=== PATIENT | male | born 1970 | race Hispanic/Latino ===

== ENCOUNTER 2016-11-24 18:03 | Inpatient (IN) | payer MEDICAID, OTHER ==
--- NOTE | 2016-11-24 18:14 | ED PDOC ---
Arrival/HPI - General Time Seen by Provider: 11/24/16 18:04 Historian: Patient - History of Present Illness Narrative History of Present Illness (Text): 11/24/16 18:04 Manolo Cisneros is a 46 year old male, whose past medical history includes depression, who presents to the emergency department transferred from [facility] for suicidal ideation. Patient was medically cleared and accepted prior to arrival. Patient denies any complaints at this time. Time/Duration: 24 hours Symptom Onset: Gradual Symptom Course: Unchanged Activities at Onset: Rest Context: Home Past Medical History - Provider Review Nursing Documentation Reviewed: Yes Family/Social History - Physician Review Nursing Documentation Reviewed: Yes Family/Social History: No Known Family HX Allergies/Home Meds Allergies/Adverse Reactions: Allergies No Known Allergies Allergy (Verified 11/24/16 18:14) Home Medications: Home Meds Medication Instructions Recorded Confirmed No Known Home Med 11/24/16 11/24/16 Review of Systems - Physician Review All systems were reviewed & negative as marked: Yes - Review of Systems Constitutional: absent: Fevers, Night Sweats Eyes: absent: Vision Changes ENT: absent: Hearing Changes Respiratory: absent: SOB, Cough Cardiovascular: absent: Chest Pain Gastrointestinal: absent: Abdominal Pain Genitourinary Male: absent: Dysuria, Frequency Musculoskeletal: absent: Arthralgias Skin: absent: Rash Neurological: absent: Headache Endocrine: absent: Diaphoresis Hemo/Lymphatic: absent: Adenopathy Psychiatric: Suicidal Ideation. absent: Anxiety Physical Exam Vital Signs Temp Pulse Resp BP Pulse Ox 11/24/16 20:37 72 16 123/62 97 11/24/16 18:07 98.2 F 71 18 124/61 96 - Systems Exam Head: Present: Atraumatic, Normocephalic Pupils: Present: PERRL Extroacular Muscles: Present: EOMI Conjunctiva: Present: Normal Mouth: Present: Moist Mucous Membranes Neck: Present: Normal Range of Motion Respiratory/Chest: Present: Clear to Auscultation, Good Air Exchange. No: Respiratory Distress, Accessory Muscle Use Cardiovascular: Present: Regular Rate and Rhythm, Normal S1, S2. No: Murmurs Abdomen: Present: Normal Bowel Sounds. No: Tenderness, Distention, Peritoneal Signs Back: Present: Normal Inspection Upper Extremity: Present: Normal Inspection. No: Cyanosis, Edema Lower Extremity: Present: Normal Inspection. No: Edema Neurological: Present: GCS=15, CN II-XII Intact, Speech Normal Skin: Present: Warm, Dry, Normal Color. No: Rashes Psychiatric: Present: Alert, Oriented x 3, Normal Insight, Normal Concentration Medical Decision Making ED Course and Treatment: 11/24/16 18:13 Impression: 46 year old male transferred from [facility] for suicidal ideation. Differential Diagnosis included but are not limited to: Suicidal Ideation Plan: -- Admission Progress Notes: - Scribe Statement The provider has reviewed the documentation as recorded by the Bill Wise Provider Scribe Attestation: All medical record entries made by the Apibdain were at my direction and personally dictated by me. I have reviewed the chart and agree that the record accurately reflects my personal performance of the history, physical exam, medical decision making, and the department course for this patient. I have also personally directed, reviewed, and agree with the discharge instructions and disposition. Disposition/Present on Arrival - Present on Arrival Any Indicators Present on Arrival: No - Disposition Have Diagnosis and Disposition been Completed?: Yes Diagnosis: Depression Disposition: HOSPITALIZED Disposition Time: 20:52 Condition: STABLE
[2016-11-24] MEDS: Multivitamin Therapeutic Tab PO SCH (21:43)
--- NOTE | 2016-11-24 23:47 | PCM.BM ---
<Jing Melara - Last Filed: 11/24/16 23:43> Treatment Plan Problems - Problems identified on initial assessmt Depression Date Initiated: 11/24/16 Time Initiated: 20:40 Assessment reference: NA Status: Active Priority: 1 Non-med compliant Date Initiated: 11/24/16 Time Initiated: 20:40 Assessment reference: NA Status: Active Priority: 2 Treatment assets and liabiliti Patient Assests: educated, self-reliant, ADL independent, negotiates basic needs , cognitively intact Patient Liabilities: financial problems, poor support system, substance abuse - Milieu Protocol Maintain good personal hygiene: daily Encourage regular showers, daily Remind patient to perform daily oral care, daily Assist patient to perform ADL's Conduct patient checks and document Observation sheet: Q15 minutes Maintain personal safety: every shift Educate patient to report safety concerns to staff, every shift Monitor environment for contraband/sharps Medication safety: Monitor for expected outcome, potential side effects: every shift, Assess barriers to learning: every shift, Assess readiness for medication education: every shift Discharge/Continuing Care - Education Needs Education Needs: Patient Medication, Patient Diagnosis/Disease Process, Patient Coping Skills, Patient Placement options, Patient Community resources - Discharge Discharge Criteria: Normal sleep pattern <Robert Sullivan - Last Filed: 11/25/16 11:58> Treatment Plan Problems - Problems identified on initial assessmt panic attacks Date Initiated: 11/25/16 Time Initiated: 11:57 Assessment reference: HP, NA Status: Active - Milieu Protocol Maintain good personal hygiene: daily Encourage regular showers, daily Remind patient to perform daily oral care, daily Assist patient to perform ADL's Maintain personal safety: daily Educate patient to report safety concerns to staff, daily Monitor environment for contraband/sharps Medication safety: Monitor for expected outcome, potential side effects: daily, Assess barriers to learning: daily, Assess readiness for medication education: daily Discharge/Continuing Care - Education Needs Education Needs: Family Medication, Family Diagnosis/Disease Process, Family Coping Skills, Family Anger Management skills, Family Community resources, Family Activities of Daily Living, Family Uses of Medical Equipment, Family Personal Hygiene/Grooming, Family Aftercare Safety Plan <Anh Tidwell - Last Filed: 11/25/16 14:08> - Diagnosis (1) Bipolar 1 disorder Status: Acute Interventions: 11/25/16 14:08 Psychoeducation Psychopharmacology/adjustment of medications as needed/ monitoring possible side effects Monitor blood level of mood stabilizers Evaluate pt on daily basis Compliance with medications and follow up appointments Suicide and homicide risk assessment and prevention, coping strategies, safety plan Relapse prevention Reduction of symptoms Improve functional status Family intervention As outpatient: cognitive behavioral therapy (2) Panic disorder with agoraphobia Status: Acute Interventions: 11/25/16 14:09 Psychoeducation Psychopharmacology/adjustment of medications as needed/ monitoring possible side effects Evaluate pt on daily basis Compliance with medications and follow up appointments Suicide and homicide risk assessment and prevention, coping strategies, safety plan Reduction of symptoms Relaxation techniques and breathing exercises Improve functional status Family intervention As outpatient: cognitive behavioral therapy (3) Alcohol use disorder Status: Acute Interventions: 11/25/16 14:09 Monitoring withdrawal symptoms Medical detoxification Pharmacotherapy for alcohol/benzos/opioid dependence Maintaining sobriety Relapse prevention Possible rehabilitation Motivational interviewing 12-step programs: AA meetings <Denise Botello Y - Last Filed: 11/25/16 16:12> Family Contact - Goals for Treatment Patient goals for treatment: "To figure out what is going on with me."
[2016-11-25 07:17] LABS: BASO # 0.04 K/mm3 (0.0-2.0); BASO % 0.7 % (0.0-3.0); EOS # 0.3 (0.0-0.7); EOS % 4.1 % (1.5-5.0); GRAN # 3.21 (1.4-6.5); GRAN % 52.2 % (50.0-68.0); HEMATOCRIT 41.6 % (42.0-52.0); LYMPH % 32.4 % (22.0-35.0); MEAN CELL VOLUME 93.1 fl (80.0-105.0); MEAN CORPUSCULAR HEMOGLOBIN 32.7 pg (25.0-35.0); MEAN CORPUSCULAR HGB CONC 35.1 g/dl (31.0-37.0); MEAN PLATELET VOLUME 8.6 fl (7.0-11.0); MONO # 0.7 (0.1-0.6); MONO % 10.6 % (1.0-6.0); RED CELL DISTRIBUTION WIDTH 12.6 % (11.5-14.5); WHITE BLOOD COUNT 6.1 10^3/ul (4.5-11.0)
[2016-11-25 07:26] LABS: ALB/GLOB RATIO 1.3 (1.1-1.8); ALKALINE PHOSPHATASE 61 U/L (38-133); ALT/SGPT 97 U/L (7-56); AST/SGOT 75 U/L (15-59); BILIRUBIN,TOTAL 1.2 mg/dL (0.2-1.3); BLOOD UREA NITROGEN 14 mg/dL (7-21); CALCIUM 8.9 mg/dL (8.4-10.5); CARBON DIOXIDE 28 mmol/L (21-33); CHLORIDE 102 mmol/L (95-110); GFR AFRICAN-AMERICAN > 60; GLUCOSE,RANDOM 84 mg/dL (70-110); POTASSIUM 4.1 mmol/L (3.6-5.0); SODIUM 141 mmol/L (132-148); TOTAL PROTEIN 7.1 g/dL (5.8-8.3)
[2016-11-25] MEDS: Multivitamin Therapeutic Tab PO SCH (09:14)
--- NOTE | 2016-11-25 15:09 | CON ---
DATE: HISTORY OF PRESENT ILLNESS: I was consulted to seen him in a psychiatric floor, saw him resting in bed. He had a rough night sleeping. He has got some tremors in his hands. He comes in being a 46-year-old man, who stopped drinking 2 days ago. He said he is going to withdrawal to me and I was trying quit alcohol and things he might need detox. He was transferred from [facility] for suicidal ideation, depression, anxiety, and DTs. PAST MEDICAL HISTORY: Depression, alcohol abuse. SOCIAL HISTORY: No smoker. No drugs. He tells me. FAMILY HISTORY: Does not know the family history. ALLERGIES: NO KNOWN DRUG ALLERGIES. MEDICATIONS: Not taking any medications. REVIEW OF SYSTEMS: Very anxious, shaky, depressed. No acute vision or hearing changes. No shortness of breath or cough. No chest pain. No palpitation. No abdominal pain. No nausea or vomiting. No constipation or diarrhea. No problems urinating. No back pains. No rashes. No headache. He is not sweating. He is mentally off. He is anxious. He has also got some tremors on the hands. He feels suicidal. PHYSICAL EXAMINATION: VITAL SIGNS: He is 98.2 temperature, 72 pulse, 16 respiratory rate, 123/62 blood pressure, 97% O2 sat on room air. HEENT: Head is atraumatic, normocephalic. Extraocular muscles are intact. Pupils are equal and reactive to light. Membranes are moist. NECK: Supple. HEART: Regular rate. Normal S1 and S2. LUNGS: Clear to auscultation bilaterally. ABDOMEN: Soft and nontender. Positive bowel sounds. No guarding. No rebound. No CVA tenderness. EXTREMITIES: No edema. GCS is 15. Cranial nerves II through XII grossly intact. He can close his eyes tight. He could smile. He could stick out his tongue midline. He could frown. He could raise his arms over his head, arms have some tremors to them as well as shaky this morning. SKIN: Warm and dry. He is alert and oriented x3. He is here for a few things. I think he is going through early DTs on tracking for two days. He tells me drinks a lot of alcohol. He is depressed, anxious, suicidal. LABORATORY DATA: He had a 6.1 white count, 14.6 hemoglobin, 41.6 hematocrit with a 139 platelets. Sodium 141, potassium 4.1, BUN 14, creatinine 0.8, GFR is greater than 60, sugar is 84, calcium is 8.9, total bilirubin 1.2, AST is 75, ALT is 97, elevated liver enzymes. We will check a liver ultrasound and blood test tomorrow. Alkaline phosphatase 61, total protein is 7.1, albumin is 4.1, globulin is 3. Toxicology only shows a alcohol level less than 10. No chest x-ray. EKG were done. We will continue to follow. Check his labs tomorrow. We will order an ultrasound of the liver and as per psychiatry. Thank you for allowing me to participate in the treatment of Manolo. Juno Frost DO
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
[2016-11-26 07:02] LABS: HEMATOCRIT 42.3 % (42.0-52.0); MEAN CELL VOLUME 93.4 fl (80.0-105.0); MEAN CORPUSCULAR HEMOGLOBIN 33.1 pg (25.0-35.0); MEAN CORPUSCULAR HGB CONC 35.5 g/dl (31.0-37.0); MEAN PLATELET VOLUME 8.9 fl (7.0-11.0); RED CELL DISTRIBUTION WIDTH 12.4 % (11.5-14.5); WHITE BLOOD COUNT 6.9 10^3/ul (4.5-11.0)
[2016-11-26 07:17] LABS: ALB/GLOB RATIO 1.4 (1.1-1.8); ALKALINE PHOSPHATASE 65 U/L (38-133); ALT/SGPT 100 U/L (7-56); AST/SGOT 69 U/L (15-59); BILIRUBIN,TOTAL 0.7 mg/dL (0.2-1.3); BLOOD UREA NITROGEN 15 mg/dL (7-21); CALCIUM 9.3 mg/dL (8.4-10.5); CARBON DIOXIDE 28 mmol/L (21-33); CHLORIDE 103 mmol/L (98-107); GFR AFRICAN-AMERICAN > 60; GLUCOSE,RANDOM 96 mg/dL (70-110); POTASSIUM 4.2 mmol/L (3.6-5.0); SODIUM 141 mmol/L (132-148); TOTAL PROTEIN 7.2 g/dL (5.8-8.3)
[2016-11-26] MEDS: Multivitamin Therapeutic Tab PO SCH (08:49)
--- NOTE | 2016-11-26 09:48 | PCM.PYCHPN ---
Psychiatric Progress Note - Psychiatric Progress Note Patient seen today, length of contact: 30 minutes Patient Chief Complaint: "I'm thinking about my show, which was lost during the transportation, I'm thinking about my girlfriend if she threw my stuff, I'm thinking about my job, should I go back there, I'll also thinking about possible rehabilitation, I also think to give a call to my mom, I don't know what to do" Problems Identified/Issues Discussed: Suicide/ homicide prevention, past psychiatric h/o, current psychiatric symptoms , medical problems, risk/benefits and alternatives of medications, medications compliance, coping strategies, substance abuse h/o, relapse prevention, importance of follow up with psychiatrist and therapist, discharge plan. Medical Problems: patient reported to be healthy, at the same time has withdrawal symptoms which are under control, pt is overweight Diagnostic Results: 11/26/16 06:40 11/26/16 06:40 Lab Results 11/26/16 06:40: Sodium 141, Potassium 4.2, Chloride 103, Carbon Dioxide 28, Anion Gap 14, BUN 15, Creatinine 0.8, Est GFR ( Amer) > 60, Est GFR (Non- Af Amer) > 60, Random Glucose 96, Calcium 9.3, Total Bilirubin 0.7, AST 69 H, ALT 100 H, Alkaline Phosphatase 65, Total Protein 7.2, Albumin 4.3, Globulin 3.0 , Albumin/Globulin Ratio 1.4 11/26/16 06:40: WBC 6.9, RBC 4.53, Hgb 15.0, Hct 42.3, MCV 93.4, MCH 33.1, MCHC 35.5, RDW 12.4, Plt Count 204, MPV 8.9 11/25/16 07:20: Alcohol, Quantitative < 10 11/25/16 07:00: Sodium 141, Potassium 4.1, Chloride 102, Carbon Dioxide 28, Anion Gap 15, BUN 14, Creatinine 0.8, Est GFR ( Amer) > 60, Est GFR (Non- Af Amer) > 60, Random Glucose 84, Calcium 8.9, Total Bilirubin 1.2, AST 75 H, ALT 97 H, Alkaline Phosphatase 61, Total Protein 7.1, Albumin 4.1, Globulin 3.0 , Albumin/Globulin Ratio 1.3 11/25/16 07:00: WBC 6.1, RBC 4.47, Hgb 14.6, Hct 41.6 L, MCV 93.1, MCH 32.7, MCHC 35.1, RDW 12.6, Plt Count 179, MPV 8.6, Gran % 52.2, Lymph % (Auto) 32.4, [place] % (Auto) 10.6 H, Eos % (Auto) 4.1, Baso % (Auto) 0.7, Gran # 3.21, Lymph # 2.0, [place] # 0.7 H, Eos # 0.3, Baso # 0.04 Vital Signs Temp Pulse Resp BP Pulse Ox 11/26/16 07:02 98.4 F 84 20 124/72 95 11/26/16 02:18 76 123/79 11/25/16 16:00 76 123/79 11/25/16 07:08 98.1 F 75 16 147/88 11/24/16 20:37 72 16 123/62 97 11/24/16 18:07 98.2 F 71 18 124/61 96 DSM 5 Symptoms Update: shortly patient is 46 year old male, self reported history of major depressive disorder, panic disorder, alcohol use disorder, patient was transferred from [facility] for evaluation and stabilization of depressive symptoms, possible suicidal ideation, patient also was abusing alcohol, patient also complained of worsening of panic attacks, needs further evaluation and stabilization, medications titration. patient was seen today at the treatment team meeting, presented to be still depressed seems to have racing thoughts, pt was jumping from one topic to another, pt said "I'm thinking about my show, which was lost during the transportation, I'm thinking about my girlfriend if she threw my stuff, I'm thinking about my job, should I go back there, I'll also thinking about possible rehabilitation, I also think to give a call to my mom, I don't know what to do", patient was holding his head seems to be overwhelmed. emotional support, empathic listening was provided. Patient reported that she had restless night but that the same time reported to sleep better to compare to the time of admission. withdrawals are better. Pt reported to feel depressed, hopeless, confused, unable to concentrate. Patient denied hearing voices, denied seeing things, denied paranoid ideations. Patient does not appear to be psychotic. As per staff [place] behavioral incident, patient appears to be restless, pacing in the unit, at the same time no behavioral issues, medication compliance is good. P TOLERATES MEDICATIONS WELL< NO SIDE EFFECTS OBSERVED OR REPORTED< AIMS )< NO EPS. Impression: DSM 5 Diagnosis: r/o Bipolar disorder r/o panic disorder with agoraphobia alcohol use disorder alcohol withdrawal symptoms Medication Change: Yes (remeron hs, d/c ambien) Medical Record Reviewed: Yes Consults ordered or reviewed: medical consult appreciated Mental Status Examination - Cognitive Function Orientation: Person, Place, Situation Memory: Intact Attention: Poor Concentration: Poor Association: WNL Fund of Knowledge: WNL - Mood Mood: Depressed, Anxious - Affect Affect: Constricted - Formal Thought Process Formal Thought Process: Circumstantial - Suicidal Ideation Suicidal Ideation: No - Homicidal Ideation Homicidal Ideation: No Goal/Treatment Plan - Goal/Treatment Plan Need for Continued Stay: Remain at risks for inpatient hospitalization, Severe depression anxiety, Discharge may exacerbated symptoms, Failed transitioning, Severe functional impairment Progress Toward Problem(s) and Goals/Treatment Plan: Milieu, structure, supportive therapy Multivitamins, thiamine, folic acid by mouth daily Ativan 2 mg 4 times a day scheduled for alcohol withdrawal symptoms with a plan to taper that off Ativan 2 mg every 6 hours as needed for alcohol withdrawal symptoms breakthrough symptoms Paxil 20 mg at the nighttime for major depressive disorder as well as anxiety Abilify 5 mg at the morning and nighttime for mood stabilization, most likely patient has bipolar spectrum disorder remeron 15mg po hs for depression and insomnia Medical team consultation appreciated Possible naltrexone for alcohol use disorder 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
--- NOTE | 2016-11-26 15:17 | PN ---
DATE: SUBJECTIVE: I saw him sitting out of bed to chair in the dayroom all by himself, watching TV. He is comfortable, slept fairly well. Feeling little bit better, less tremors. He is on Abilify, Ativan, folic acid, Geodon, Paxil, Remeron, Feratab, and vitamin B1. He is worried about being off the alcohol and feeling worse, although I think he is starting to feel better. PHYSICAL EXAMINATION: VITAL SIGNS: 98.4 temperature, 84 pulse, 124/72 blood pressure, 20 respiratory rate, 95% O2 sat on room air. HEENT: Head is atraumatic and normocephalic. Throat is moist. NECK: Supple. HEART: Regular rate. LUNGS: Clear to auscultation. ABDOMEN: Soft, obese, nontender. EXTREMITIES: No edema. LABORATORY DATA: He has 6.9 white count, 15 hemoglobin, 42.3 hematocrit, 204 platelets. 141 sodium, potassium 4.2, BUN 15, creatinine 0.8. GFR is greater than 60. Sugar is 96. Calcium is 9.3, total bilirubin is 0.7, AST is better at 69, ALT is 100, alkaline phosphatase is 65, total protein 7.2, albumin is 4.3, globulin 3. Toxicology was negative. He did have an abdominal ultrasound, which is pending. I am waiting for that to come back. Psychiatry is adjusting his medications. He is here for alcohol abuse withdrawal, acute depression. Continue with aggressive treatment and care. Hopefully, ultrasound would be back in the next 24 hours. Juno Frost DO
--- NOTE | 2016-11-26 16:52 | US ---
HISTORY: Elevated LFTs COMPARISON: None. TECHNIQUE: Sonographic evaluation of the abdomen. FINDINGS: LIVER: Liver is enlarged measuring approximately 19.3 cm in CC dimension . Liver demonstrates smooth contour but slight increased echotexture consistent with fatty infiltration. Other infiltrative hepatocellular disease process not excluded. No definitive mass collection or calcification seen on image is presented. GALLBLADDER: Unremarkable. No gallstones. COMMON BILE DUCT: Measures approximately 3.5 mm. No stones. No dilatation. PANCREAS: Pancreas is not visualized due to body habitus and bowel gas. RIGHT KIDNEY: Measures 12.9 x 5.3 x 5.5cm. Normal echogenicity. No calculus, mass, or hydronephrosis. LEFT KIDNEY: Measures 14 x 6.5 x 6.2cm. Normal echogenicity. No calculus, mass, or hydronephrosis. SPLEEN: Normal in size measuring approximately 11.2 cm. No splenic mass collection or calcification. AORTA: No aneurysmal dilatation. IVC: Unremarkable. OTHER FINDINGS: None. IMPRESSION: Hepatomegaly. Liver demonstrates increased echotexture most likely representing fatty infiltration however other infiltrative hepatocellular disease process not excluded.
[2016-11-27 06:45] LABS: ALB/GLOB RATIO 1.4 (1.1-1.8); BILIRUBIN,DIRECT 0.3 mg/dL (0.0-0.4); BILIRUBIN,TOTAL 0.8 mg/dL (0.2-1.3); TOTAL PROTEIN 7.3 g/dL (5.8-8.3)
[2016-11-27] MEDS: Multivitamin Therapeutic Tab PO SCH (09:23)
--- NOTE | 2016-11-27 17:35 | PN ---
DATE: 11/27/2016 SUBJECTIVE: I saw Manolo this morning in the bathroom actually shaving his head. He tells me that this is once a year and this is the time, so we do not yet he is feeling better overall. No real DT feeling, on Abilify, Ativan, folic acid, Geodon, Paxil, Remeron, Feratab, and vitamin B1. He is eating well and participating. He is feeling better overall. PHYSICAL EXAMINATION: VITAL SIGNS: He has 98.4 temperature, 84 pulse, 124/72 blood pressure, 20 respiratory rate, 95% O2 sat. HEENT: Head is atraumatic and normocephalic except that shaving his head. HEART: Regular rate. LUNGS: Clear to auscultation. ABDOMEN: Soft. EXTREMITIES: No edema. MEDICATIONS: He is on Abilify, Ativan, folic acid, Geodon, Paxil, Remeron and vitamins. LABORATORY DATA: Last labs on 11/26/2016. His CBC was good. Chemistry was good. His AST was 69, ALT was 108 on the 11/27/2016 which is this morning. It is about the same with elevated liver enzymes. His abdominal ultrasound which showed hepatomegaly and the liver demonstrates echotexture, fatty infiltration only at GI consult further opinion the elevated liver enzymes it might be medicine related versus his drinking history. We will continue to monitor the liver. He is here for alcohol abuse withdrawal, and anxiety, depression, suicidal ideation, increased LFT's, we are calling GI to get their our opinion and review the ultrasound. Encouragement with medications and treatment. Juno Frost DO
[2016-11-28 07:34] LABS: HEMATOCRIT 46.1 % (42.0-52.0); MEAN CELL VOLUME 93.9 fl (80.0-105.0); MEAN CORPUSCULAR HEMOGLOBIN 33.4 pg (25.0-35.0); MEAN CORPUSCULAR HGB CONC 35.6 g/dl (31.0-37.0); RED CELL DISTRIBUTION WIDTH 12.5 % (11.5-14.5); WHITE BLOOD COUNT 7.6 10^3/ul (4.5-11.0)
[2016-11-28 07:42] LABS: ALB/GLOB RATIO 1.4 (1.1-1.8); ALKALINE PHOSPHATASE 69 U/L (38-133); ALT/SGPT 111 U/L (7-56); AST/SGOT 70 U/L (15-59); BLOOD UREA NITROGEN 18 mg/dL (7-21); CALCIUM 9.9 mg/dL (8.4-10.5); CARBON DIOXIDE 30 mmol/L (21-33); CHLORIDE 101 mmol/L (95-110); GFR AFRICAN-AMERICAN > 60; GLUCOSE,RANDOM 105 mg/dL (70-110); POTASSIUM 5.1 mmol/L (3.6-5.0); SODIUM 141 mmol/L (132-148)
--- NOTE | 2016-11-28 07:49 | CP.PCM.CON ---
<Eric Herring - Last Filed: 11/28/16 08:57> History of Present Illness - History of Present Illness History of Present Illness: GI Consult Note 46 y/o M with PMH of DM type 2 and alcohol abuse presents to the hospital for suicidal ideation and depression. Patient was transferred in from [facility] for inpatient psychiatric treatment. Patient states he was initially set up for inpatient care at [facility] for alcohol detox and depression, but went to the wrong hospital. Patient states he has been stressed out due to home issues recently. These issues have caused him to drink more than he usually does. Pt does not currently admit to suicidal ideation. Pt states he has been using ibuprofen for a toothache recently, but no chronic use of NSAIDS. Of note, patient does have a suicide attempt in the past where he overdosed on Xanax. Denies CP, SOB, N/V/D, abdominal pain, fevers, chills, dysuria. PMH: DM2, alcohol abuse FMH: Arthritis Social Hx: 1.5 pints of vodka daily, former smoker of 1/4 ppd, denies illicit drug use Endo Hx: None Medication: None Allergies: NKDA Review of Systems - Review of Systems Review of Systems: 12 point review of systems performed and negative except where stated. Past Patient History - Infectious Disease Hx of Infectious Diseases: None - Past Social History Smoking Status: Unknown If Ever Smoked - PSYCHIATRIC Hx Anxiety: Yes Hx Depression: Yes Hx Substance Use: Yes (etoh) - SURGICAL HISTORY Hx Surgeries: No Hx Herniorrhaphy: Yes (2008) - ANESTHESIA Hx Anesthesia: Yes Hx Anesthesia Reactions: No Hx Malignant Hyperthermia: No Has any member of the family had a problem w/ anesthesia?: No Meds Allergies/Adverse Reactions: Allergies Allergy/AdvReac Type Severity Reaction Status Date / Time No Known Allergies Allergy Verified 11/24/16 18:14 - Medications Medications: Current Medications Aripiprazole (Abilify) 5 mg PO AMHS [facility] Last Admin: 11/27/16 21:50 Dose: 5 mg Folic Acid (Folic Acid) 1 mg PO DAILY [facility] Last Admin: 11/27/16 09:23 Dose: 1 mg Lorazepam (Ativan) 2 mg PO QID [facility] ALBERTO PRN Reason: Protocol Last Admin: 11/27/16 21:51 Dose: 2 mg Lorazepam (Ativan) 2 mg PO Q6 PRN; Protocol PRN Reason: withdrawal Last Admin: 11/27/16 11:06 Dose: 2 mg Mirtazapine (Remeron) 15 mg PO HS [facility] Last Admin: 11/27/16 21:51 Dose: 15 mg Multivitamins (Thera Tab) 1 tab PO 0800 [facility]LOS ALBERTO Last Admin: 11/27/16 09:23 Dose: 1 tab Paroxetine HCl (Paxil) 20 mg PO HS [facility] Last Admin: 11/27/16 21:50 Dose: 20 mg Thiamine HCl (Vitamin B1 Tab) 100 mg PO DAILY [facility] Last Admin: 11/27/16 09:23 Dose: 100 mg Ziprasidone (Geodon Cap) 20 mg PO Q8 PRN; Protocol PRN Reason: Agitation Last Admin: 11/27/16 11:07 Dose: 20 mg Ziprasidone (Geodon Inj) 20 mg IM Q6 PRN; Protocol PRN Reason: Agitation Physical Exam - Constitutional Appears: Non-toxic, No Acute Distress - Head Exam Head Exam: ATRAUMATIC, NORMAL INSPECTION, NORMOCEPHALIC - ENT Exam ENT Exam: Mucous Membranes Moist - Respiratory Exam Respiratory Exam: Clear to Auscultation Bilateral, NORMAL BREATHING PATTERN. absent: Rales, Rhonchi, Wheezes - Cardiovascular Exam Cardiovascular Exam: RRR, +S1, +S2 - GI/Abdominal Exam GI & Abdominal Exam: Normal Bowel Sounds, Soft. absent: Distended, Guarding, Tenderness - Extremities Exam Extremities exam: Negative for: calf tenderness, pedal edema - Neurological Exam Neurological exam: Alert, CN II-XII Intact, Oriented x3 - Psychiatric Exam Psychiatric exam: Normal Affect, Normal Mood - Skin Skin Exam: Intact, Normal Color, Warm Results - Vital Signs Recent Vital Signs: Last Vital Signs Temp 98.0 F 11/28/16 06:36 Pulse 82 11/28/16 06:36 Resp 20 11/27/16 10:00 BP 120/88 11/28/16 06:36 Pulse Ox 95 11/26/16 07:02 - Labs Result Diagrams: 11/28/16 07:00 11/28/16 07:00 Labs: Laboratory Results - last 24 hr 11/28/16 07:00 WBC 7.6 RBC 4.91 Hgb 16.4 Hct 46.1 MCV 93.9 MCH 33.4 MCHC 35.6 RDW 12.5 Plt Count 210 MPV 9.0 Assessment & Plan - Assessment and Plan (Free Text) Assessment: 46 y/o M with PMH of DM2 and alcohol abuse presents with transaminitis likely secondary to chronic alcohol abuse. 1. Transaminitis 2. Depression 3. Anxiety Plan: - Hepatitis Panel - Avoid alcohol use - Follow up with GI clinic outpatient - Continue current psychiatric management - Will sign off at that this time <Ministerio Decker Y - Last Filed: 11/28/16 09:19> Meds - Medications Medications: Current Medications Aripiprazole (Abilify) 5 mg PO AMHS [facility] Last Admin: 11/27/16 21:50 Dose: 5 mg Folic Acid (Folic Acid) 1 mg PO DAILY [facility] Last Admin: 11/27/16 09:23 Dose: 1 mg Lorazepam (Ativan) 2 mg PO QID CARLOS ALBERTO PRN Reason: Protocol Last Admin: 11/27/16 21:51 Dose: 2 mg Lorazepam (Ativan) 2 mg PO Q6 PRN; Protocol PRN Reason: withdrawal Last Admin: 11/27/16 11:06 Dose: 2 mg Mirtazapine (Remeron) 15 mg PO HS [facility] Last Admin: 11/27/16 21:51 Dose: 15 mg Multivitamins (Thera Tab) 1 tab PO 0800 CARLOS ALBERTO Last Admin: 11/27/16 09:23 Dose: 1 tab Paroxetine HCl (Paxil) 20 mg PO HS [facility] Last Admin: 11/27/16 21:50 Dose: 20 mg Thiamine HCl (Vitamin B1 Tab) 100 mg PO DAILY [facility] Last Admin: 11/27/16 09:23 Dose: 100 mg Ziprasidone (Geodon Cap) 20 mg PO Q8 PRN; Protocol PRN Reason: Agitation Last Admin: 11/27/16 11:07 Dose: 20 mg Ziprasidone (Geodon Inj) 20 mg IM Q6 PRN; Protocol PRN Reason: Agitation Results - Vital Signs Recent Vital Signs: Last Vital Signs Temp 98.0 F 11/28/16 06:36 Pulse 82 11/28/16 06:36 Resp 20 11/27/16 10:00 BP 120/88 11/28/16 06:36 Pulse Ox 95 11/26/16 07:02 - Labs Result Diagrams: 11/28/16 07:00 11/28/16 07:00 Labs: Laboratory Results - last 24 hr 11/28/16 11/28/16 07:00 07:00 WBC 7.6 RBC 4.91 Hgb 16.4 Hct 46.1 MCV 93.9 MCH 33.4 MCHC 35.6 RDW 12.5 Plt Count 210 MPV 9.0 Sodium 141 Potassium 5.1 H Chloride 101 Carbon Dioxide 30 Anion Gap 15 BUN 18 Creatinine 0.9 Est GFR ( Amer) > 60 Est GFR (Non-Af Amer) > 60 Random Glucose 105 Calcium 9.9 Total Bilirubin 1.0 AST 70 H ALT 111 H Alkaline Phosphatase 69 Total Protein 8.0 Albumin 4.7 Globulin 3.4 Albumin/Globulin Ratio 1.4 Attending/Attestation - Attestation I have personally seen and examined this patient.: Yes I have fully participated in the care of the patient.: Yes I have reviewed all pertinent clinical information: Yes Notes (Text): 11/28/16 09:12 I have seen and examined patient with GI fellow and medical technologist. Agree with above documentation with the following additions. In brief, this is a 46 year old male with history of DM, ETOH abuse, depression, who is admitted to psychiatric unit for worsening depression and suicidal ideation. GI called for evaluation of elevated LFTs. He admits to ongoing ETOH abuse and consumes 1.5 pints of vodka daily. He otherwise denies abdominal pain, nausea, vomiting, fever/chills, weight loss, rectal bleeding, jaundice, or change in bowel habits. He does report intermittent pruritis. No prior endoscopic evaluation. Additional physical examination: Abdomen: no palpable hepato/splenomegaly Skin: multiple tattoos present on b/l upper and lower extremities DM Transaminitis in setting of ongoing ETOH abuse Abdominal US reviewed by me showing hepatomegaly, fatty liver - Diet as tolerated - LFTs stable, continue to monitor and avoid hepatotoxic therapies - Obtain viral hepatitis panel - ETOH cessation counseling - Patient would benefit from subsequent outpatient follow up after adequate control of acute psychiatric issues and cessation of ETOH. No acute GI issues, will sign off case. Please reconsult as necessary, thank you.
[2016-11-28] MEDS: Multivitamin Therapeutic Tab PO SCH (09:22)
--- NOTE | 2016-11-28 09:52 | PN ---
DATE: SUBJECTIVE: I see him resting comfortably in a chair and watching TV. He is in good spirits. He is feeling well. He finished shaving his head. He has got no complaints today. No tremors. He is eating. He has got a good appetite. He is improving. He is on Abilify, Ativan, folic acid, Geodon, Paxil, Remeron, Thera-Tabs, and vitamin B1. PHYSICAL EXAMINATION: VITAL SIGNS: 98 temperature, 82 pulse, 120/88 blood pressure, and 95% O2 sat on room air. HEENT: Head is atraumatic and normocephalic. HEART: Regular rate. LUNGS: Clear to auscultation. ABDOMEN: Soft, obese, and nontender. EXTREMITIES: Reveal no edema. MEDICATIONS: He is currently on Abilify, Ativan, folic acid, Geodon, Paxil, Remeron, Thera-Tabs, and vitamin B1. LABORATORY DATA: He had labs. He had 7.6 white count, 16.4 hemoglobin, 46.1 hematocrit with 210 platelets. He has 141 sodium, potassium 5.1 little high, BUN 18, creatinine 0.9, GFR is greater than 60, sugars 105, calcium is 9.9, and total bilirubin is 1. His AST is 70, ALT is 111, alk phos is 69, and total protein is 8.0. ASSESSMENT AND PLAN: He was seen by gastrointestinal and psychiatry. He has a fatty liver and elevated liver enzymes. Alcohol abuse and withdrawal, transaminitis, depression, and anxiety. Hopefully, he did very well and continue as per psychiatry. Juno Frost DO
--- NOTE | 2016-11-28 16:40 | PCM.PYCHPN ---
Psychiatric Progress Note - Psychiatric Progress Note Patient seen today, length of contact: 30 minutes Patient Chief Complaint: "I am doing little better" Problems Identified/Issues Discussed: Suicide/ homicide prevention, past psychiatric h/o, current psychiatric symptoms , medical problems, risk/benefits and alternatives of medications, medications compliance, coping strategies, substance abuse h/o, relapse prevention, importance of follow up with psychiatrist and therapist, discharge plan. Medical Problems: patient reported to be healthy, at the same time has withdrawal symptoms which are under control, pt is overweight Diagnostic Results: 11/26/16 06:40 11/26/16 06:40 Lab Results 11/26/16 06:40: Sodium 141, Potassium 4.2, Chloride 103, Carbon Dioxide 28, Anion Gap 14, BUN 15, Creatinine 0.8, Est GFR ( Amer) > 60, Est GFR (Non- Af Amer) > 60, Random Glucose 96, Calcium 9.3, Total Bilirubin 0.7, AST 69 H, ALT 100 H, Alkaline Phosphatase 65, Total Protein 7.2, Albumin 4.3, Globulin 3.0 , Albumin/Globulin Ratio 1.4 11/26/16 06:40: WBC 6.9, RBC 4.53, Hgb 15.0, Hct 42.3, MCV 93.4, MCH 33.1, MCHC 35.5, RDW 12.4, Plt Count 204, MPV 8.9 11/25/16 07:20: Alcohol, Quantitative < 10 11/25/16 07:00: Sodium 141, Potassium 4.1, Chloride 102, Carbon Dioxide 28, Anion Gap 15, BUN 14, Creatinine 0.8, Est GFR ( Amer) > 60, Est GFR (Non- Af Amer) > 60, Random Glucose 84, Calcium 8.9, Total Bilirubin 1.2, AST 75 H, ALT 97 H, Alkaline Phosphatase 61, Total Protein 7.1, Albumin 4.1, Globulin 3.0 , Albumin/Globulin Ratio 1.3 11/25/16 07:00: WBC 6.1, RBC 4.47, Hgb 14.6, Hct 41.6 L, MCV 93.1, MCH 32.7, MCHC 35.1, RDW 12.6, Plt Count 179, MPV 8.6, Gran % 52.2, Lymph % (Auto) 32.4, [place] % (Auto) 10.6 H, Eos % (Auto) 4.1, Baso % (Auto) 0.7, Gran # 3.21, Lymph # 2.0, [place] # 0.7 H, Eos # 0.3, Baso # 0.04 Vital Signs Temp Pulse Resp BP Pulse Ox 11/26/16 07:02 98.4 F 84 20 124/72 95 11/26/16 02:18 76 123/79 11/25/16 16:00 76 123/79 11/25/16 07:08 98.1 F 75 16 147/88 11/24/16 20:37 72 16 123/62 97 11/24/16 18:07 98.2 F 71 18 124/61 96 DSM 5 Symptoms Update: shortly patient is 46 year old male, self reported history of major depressive disorder, panic disorder, alcohol use disorder, patient was transferred from [facility] for evaluation and stabilization of depressive symptoms, possible suicidal ideation, patient also was abusing alcohol, patient also complained of worsening of panic attacks, needs further evaluation and stabilization, medications titration. patient was seen today at the treatment team meeting, presented to be less depressed seems racing thoughts are better, speech is not pressured, at the same time pt still has difficulties to stay focused, memory problems, pt was keep asking the same question again and again. pt denied voices, pt denied suicidal ideation/intent or plan, when was asked why pt said "I think we all one day, why we need to expedite the process?". withdrawals are better, will start tapering down ativan. PT TOLERATES MEDICATIONS WELL< NO SIDE EFFECTS OBSERVED OR REPORTED< AIMS )< NO EPS. Impression: DSM 5 Diagnosis: r/o Bipolar disorder r/o panic disorder with agoraphobia alcohol use disorder alcohol withdrawal symptoms Medication Change: Yes (remeron increased, ativan decreased, paxil increased) Medical Record Reviewed: Yes Consults ordered or reviewed: medical consult appreciated GI consult appreciated for AST and ALT elevation, signed off Mental Status Examination - Cognitive Function Orientation: Person, Place, Situation Memory: Intact Attention: Poor Concentration: Poor Association: WNL Fund of Knowledge: WNL - Mood Mood: Depressed, Anxious - Affect Affect: Constricted - Formal Thought Process Formal Thought Process: Circumstantial - Suicidal Ideation Suicidal Ideation: No - Homicidal Ideation Homicidal Ideation: No Goal/Treatment Plan - Goal/Treatment Plan Need for Continued Stay: Remain at risks for inpatient hospitalization, Severe depression anxiety, Discharge may exacerbated symptoms, Failed transitioning, Severe functional impairment Progress Toward Problem(s) and Goals/Treatment Plan: Milieu, structure, supportive therapy Multivitamins, thiamine, folic acid by mouth daily Ativan 2 mg 3 times a day scheduled for alcohol withdrawal symptoms with a plan to taper that off Ativan 2 mg every 6 hours as needed for alcohol withdrawal symptoms breakthrough symptoms Paxil 30 mg at the nighttime for major depressive disorder as well as anxiety Abilify 5 mg at the morning and nighttime for mood stabilization, most likely patient has bipolar spectrum disorder remeron 30mg po hs for depression and insomnia Medical team consultation appreciated Possible naltrexone for alcohol use disorder treatment, 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
[2016-11-29 06:47] VITALS: O2SAT 96
[2016-11-29] MEDS: Multivitamin Therapeutic Tab PO SCH (09:20)
--- NOTE | 2016-11-29 15:55 | PCM.PYCHPN ---
Psychiatric Progress Note - Psychiatric Progress Note Patient seen today, length of contact: 30 minutes Patient Chief Complaint: "I feel little better..." Problems Identified/Issues Discussed: Suicide/ homicide prevention, past psychiatric h/o, current psychiatric symptoms , medical problems, risk/benefits and alternatives of medications, medications compliance, coping strategies, substance abuse h/o, relapse prevention, importance of follow up with psychiatrist and therapist, discharge plan. Medical Problems: patient reported to be healthy, at the same time has withdrawal symptoms which are under control, pt is overweight Diagnostic Results: 11/26/16 06:40 11/26/16 06:40 Lab Results 11/26/16 06:40: Sodium 141, Potassium 4.2, Chloride 103, Carbon Dioxide 28, Anion Gap 14, BUN 15, Creatinine 0.8, Est GFR ( Amer) > 60, Est GFR (Non- Af Amer) > 60, Random Glucose 96, Calcium 9.3, Total Bilirubin 0.7, AST 69 H, ALT 100 H, Alkaline Phosphatase 65, Total Protein 7.2, Albumin 4.3, Globulin 3.0 , Albumin/Globulin Ratio 1.4 11/26/16 06:40: WBC 6.9, RBC 4.53, Hgb 15.0, Hct 42.3, MCV 93.4, MCH 33.1, MCHC 35.5, RDW 12.4, Plt Count 204, MPV 8.9 11/25/16 07:20: Alcohol, Quantitative < 10 11/25/16 07:00: Sodium 141, Potassium 4.1, Chloride 102, Carbon Dioxide 28, Anion Gap 15, BUN 14, Creatinine 0.8, Est GFR ( Amer) > 60, Est GFR (Non- Af Amer) > 60, Random Glucose 84, Calcium 8.9, Total Bilirubin 1.2, AST 75 H, ALT 97 H, Alkaline Phosphatase 61, Total Protein 7.1, Albumin 4.1, Globulin 3.0 , Albumin/Globulin Ratio 1.3 11/25/16 07:00: WBC 6.1, RBC 4.47, Hgb 14.6, Hct 41.6 L, MCV 93.1, MCH 32.7, MCHC 35.1, RDW 12.6, Plt Count 179, MPV 8.6, Gran % 52.2, Lymph % (Auto) 32.4, [place] % (Auto) 10.6 H, Eos % (Auto) 4.1, Baso % (Auto) 0.7, Gran # 3.21, Lymph # 2.0, [place] # 0.7 H, Eos # 0.3, Baso # 0.04 Vital Signs Temp Pulse Resp BP Pulse Ox 11/26/16 07:02 98.4 F 84 20 124/72 95 11/26/16 02:18 76 123/79 11/25/16 16:00 76 123/79 11/25/16 07:08 98.1 F 75 16 147/88 11/24/16 20:37 72 16 123/62 97 11/24/16 18:07 98.2 F 71 18 124/61 96 DSM 5 Symptoms Update: shortly patient is 46 year old male, self reported history of major depressive disorder, panic disorder, alcohol use disorder, patient was transferred from [facility] for evaluation and stabilization of depressive symptoms, possible suicidal ideation, patient also was abusing alcohol, patient also complained of worsening of panic attacks, needs further evaluation and stabilization, medications titration. patient was seen today at the treatment team meeting with the SW, presented to be less depressed seems racing thoughts are better, speech is not pressured, at the same time pt still has difficulties to stay focused, memory problems, pt was keep asking the same question again and again. pt knowledgeable about social science manager in the community. pt said that he feels over sedated, asked remeron to be decreased. withdrawals are better, will start tapering down ativan. PT TOLERATES MEDICATIONS WELL< NO SIDE EFFECTS OBSERVED OR REPORTED< AIMS )< NO EPS. Impression: DSM 5 Diagnosis: r/o Bipolar disorder r/o panic disorder with agoraphobia alcohol use disorder alcohol withdrawal symptoms Medication Change: Yes (remeron increased, ativan decreased, paxil increased) Medical Record Reviewed: Yes Consults ordered or reviewed: medical consult appreciated GI consult appreciated for AST and ALT elevation, signed off Mental Status Examination - Cognitive Function Orientation: Person, Place, Situation Memory: Intact Attention: Poor Concentration: Poor Association: WNL Fund of Knowledge: WNL - Mood Mood: Depressed, Anxious - Affect Affect: Constricted - Formal Thought Process Formal Thought Process: Circumstantial - Suicidal Ideation Suicidal Ideation: No - Homicidal Ideation Homicidal Ideation: No Goal/Treatment Plan - Goal/Treatment Plan Need for Continued Stay: Remain at risks for inpatient hospitalization, Severe depression anxiety, Discharge may exacerbated symptoms, Failed transitioning, Severe functional impairment Progress Toward Problem(s) and Goals/Treatment Plan: Milieu, structure, supportive therapy Multivitamins, thiamine, folic acid by mouth daily Ativan 1 mg 3 times a day scheduled for alcohol withdrawal symptoms with a plan to taper that off Ativan 2 mg every 6 hours as needed for alcohol withdrawal symptoms breakthrough symptoms Paxil 30 mg at the nighttime for major depressive disorder as well as anxiety Abilify 5 mg at the morning and nighttime for mood stabilization, most likely patient has bipolar spectrum disorder remeron 15mg po hs for depression and insomnia Medical team consultation appreciated Possible naltrexone for alcohol use disorder treatment, pt wants to think about it pass worker evaluation for possible inpatient rehabilitation We'll monitor patient vital signs very closely Estimated Date of D/C: 12/01/16 (will monitor closely)
--- NOTE | 2016-11-29 17:52 | PN ---
DATE: SUBJECTIVE: I saw Manolo sitting out of bed to chair. He is eating a very big breakfast this morning. He is quite hungry when he woke up. He is comfortable, feeling much better, in good spirits. He would like to go home. He is on Abilify, Ativan, folic acid, Geodon, Paxil, Remeron and vitamins. PHYSICAL EXAMINATION: VITAL SIGNS: 98.4 temperature, 118/82 blood pressure, 20 respiratory rate and 96% O2 saturation on room air. HEENT: Head is atraumatic and normocephalic. Throat is moist. NECK: Supple. HEART: Regular rate. LUNGS: Clear to auscultation. ABDOMEN: Soft, obese, nontender. EXTREMITIES: No edema. ASSESSMENT AND PLAN: I do think he has improved since he has been in the hospital. He is here with alcohol abuse, withdrawal, acute depression, suicidal ideation, elevated liver function test. I discussed with him never going back to drinking anymore. He understands that. He understands the problems that causes him. Hopefully, he will do that and as per Psychiatry and hopefully he will do well. He was troubled but he is maybe calmer now. Continue treatment and care. Juno Frost DO
[2016-11-30 06:31] VITALS: BP 120/81; PULSE 85; RESP 18; TEMP 98.2
[2016-11-30] MEDS: Multivitamin Therapeutic Tab PO SCH (08:41)
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
--- NOTE | 2016-11-30 14:44 | PN ---
DATE: SUBJECTIVE: I saw him sitting out of bed to chair this morning watching TV. He is in good spirits. He slept fairly well. He tells me he has got some issues he has to take care of out of the hospital and he would like to be discharged today and I told him it was up to Dr. Kmaara, he will talk to her today. He tells me he is feeling better. I do think he is doing better and is improved. He is on Abilify, Ativan, folic acid, Geodon, Motrin, Paxil, Remeron, and vitamins. PHYSICAL EXAMINATION: VITAL SIGNS: 98.2 temperature, 85 pulse, 120/81 blood pressure, 18 respiratory rate, and 96% O2 saturation on room air. HEENT: Head is atraumatic and normocephalic. Throat is moist. NECK: Supple. HEART: Regular rate. LUNGS: Decreased breath sounds. Clear to auscultation. ABDOMEN: Soft and obese. EXTREMITIES: No edema. LABORATORY DATA: His laboratory was done on 28, he has a 7.6 white count, 16.4 hemoglobin, 46.1 hematocrit, and 210 platelets. He had 140 sodium, potassium is little bit high at 5.1, BUN is 18, and creatinine 0.9. GFR is greater than 60. Sugar is 105, calcium is 9.9, total bilirubin 1, AST is 70, ALT is 111, and alkaline phosphatase 69. As per psychiatry, he was seen once by GI, he has elevated LFTs and fatty liver. ASSESSMENT AND PLAN: I felt that this was all secondary to chronic alcohol abuse and if he stopped his alcohol abuse, it is possible may be some of this would decrease or improve. Watch his LFTs. He is going to stop drinking alcohol. I discussed that with him too and he understands that. As per psychiatry, he had alcohol abuse withdrawal, acute depression, suicidal ideation, increased LFTs, and fatty liver. He is doing much better. I am going to see what Dr. Kamara has to say about his discharge plans. We will follow. Juno Frost DO
== END 2016-11-30 17:00 | disposition home or self-care (01) | DRG 430 ==
LOC: ED 18:03 → ERH 18:11 → PSYC 21:16
PROVIDERS: ADMIT Psychiatry & Neurology Psychiatry; ATTEND Psychiatry & Neurology Psychiatry
PROC: GZ3ZZZZ Medication Management (ICD-10-PCS; principal; 2016-11-25)
DX: F31.9 Bipolar disorder, unspecified (principal); R45.851 Suicidal ideations; K70.0 Alcoholic fatty liver; F10.239 Alcohol dependence with withdrawal, unspecified; E11.9 Type 2 diabetes mellitus without complications; F40.01 Agoraphobia with panic disorder; G47.00 Insomnia, unspecified; E66.3 Overweight; Z68.39 Body mass index [BMI] 39.0-39.9, adult; Z91.5 Personal history of self-harm; Z87.891 Personal history of nicotine dependence